=== PATIENT | male | born 1935 | race Caucasian/White ===

== ENCOUNTER 2016-06-09 16:57 | Emergency (ER) | payer MEDICARE, OTHER ==
[~2016-06-09] VITALS: Ht 165.1 cm; Wt 67.6 kg
[~2016-06-09 16:57] MED LIST: AMIO400T4 PO; AMOX-355 PO; ASCO500T75 PO; ASPI-84; ASPI-892 PO; CARV12.52 PO; CARV12.53 PO; CHOL100011 PO; CHOL400C9 PO; CLOP75TA PO; CLOP75TA28 PO; DOXY100T2 PO; FISH1CAP15 PO; FURO20TA4 PO; HYDR-3812 PO; HYDR-3816 PO; HYDR1TAB PO; LISI-556 PO; LOVA20TA2 PO; NA P133E35 PR; POLY119P PO; POLY17PO6 PO; POTA10CA43 PO; RT-ALBUINH IH; SMV20T; TAMS0.4C2 PO; TAMS0.4C9 PO; TMSL.4C; TRM50T PO
[2016-06-09 18:06] LABS: BILIRUBIN,URINE NEGATIVE (NEGATIVE); KETONES,URINE NEGATIVE (NEGATIVE); LEUKOCYTE ESTERASE ,URINE 3+ (NEGATIVE); NITRITE,URINE NEGATIVE (NEGATIVE); PH,URINE 5 (5-9); PROTEIN,URINE NEGATIVE (NEGATIVE); UROBILINOGEN,URINE NORMAL (NORMAL)
--- NOTE | 2016-06-09 18:14 | ED GU-Male ---
General Chief Complaint: -Male Stated Complaint: DIFF URINATING/FEELS "FULL" Nursing Triage Note: PT REPORS HE IS UNABLE TO URINATE. HE STATES HE HAS BEEN VOIDING SMALL AMOUNTS. HE ALSO REPORTS ABD BLOATING, BUT DENIES PAIN. HE REPORTS HE HAS HAD SIMILAR PROBLEMS AND HAD TO BE TREATED FOR UTI. Source: patient Exam Limitations: no limitations History of Present Illness Time seen by provider: 18:12 Initial Comments Patient complains of urinary urgency and hesitancy for the past several days. He is only voiding small amounts at a time. He denies fevers or chills. He has abdominal bloating. History of urinary tract infection. Allergies and Home Medications Allergies Coded Allergies: celecoxib (Verified Allergy, Mild, RASH, TAKES ASA AT HOME, 07/07/14) Home Medications Albuterol Sulfate 8.5 Gm Hfa.aer.ad #1 2-4 PUFF IH Q4H PRN PRN SHORTNESS OF BREATH Prescribed by: NATASHA MALDONADO on 03/31/15 1005 Amiodarone HCl 400 Mg Tablet 200 MG PO DAILY (Reported) TAKES 1/2 (400MG) TABLET Ascorbic Acid 500 Mg Tablet 500 MG PO DAILY (Reported) Carvedilol 12.5 Mg Tablet 12.5 MG PO BID (Reported) Cholecalciferol (Vitamin D3) 400 Unit Capsule 400 UNIT PO DAILY (Reported) Ciprofloxacin HCl 500 Mg Tablet #14 500 MG PO BID Prescribed by: HUGO HUBBARD on 06/09/16 1815 Doxycycline Hyclate 100 Mg Tablet #20 100 MG PO BID Prescribed by: NATASHA MALDONADO on 03/31/15 1004 Fish Oil/Dha/Epa 1 Each Capsule 1,200 MG PO BID (Reported) Furosemide 20 Mg Tablet 20 MG PO DAILY (Reported) Hydrocodone/Acetaminophen 1 Each Tablet 1 TAB PO HS (Reported) Lisinopril 5 Mg Tablet 5 MG PO DAILY (Reported) Lovastatin 20 Mg Tablet 20 MG PO HS (Reported) Polyethylene Glycol 3350 17 Gm Powd.pack 17 GM PO DAILY (Reported) Tamsulosin HCl 0.4 Mg Cap.er.24h 0.4 MG PO HS (Reported) Constitutional: no symptoms reported Cardiovascular: no symptoms reported Gastrointestinal: see HPINo abdominal pain Genitourinary: see HPI urgency Musculoskeletal: no symptoms reported Skin: no symptoms reported All Other Systemes Reviewed Negative Unless Noted: Yes Past Kwfftcy-Zdnwvs-Qoific Hx Patient Social History Alcohol Use: Denies Use Recreational Drug Use: No Smoking Status: Never a Smoker Former Smoker/When Quit: Mar 31, 1975 2nd Hand Smoke Exposure: No Recent Foreign Travel: No Contact w/Someone Who Travel: No Recent Infectious Disease Expo: No Recent Hopitalizations: No Immunizations Up To Date Date of Pneumonia Vaccine: Dec 31, 2010 Date of Influenza Vaccine: Mar 31, 2015 Surgeries HX Surgeries: Yes (CYST REMOVED FROM BACK) Surgeries: Abdominal, Appendectomy, Cardiac, CABG, Prostatectomy, Transurethral Resection Respiratory Hx Respiratory Disorders: No Cardiovascular Hx Cardiac Disorders: Yes (4 VESSEL CABG) Cardiac Disorders: Cardiomyopathy, Coronary Artery Disease, High Cholesterol Neurological Hx Neurological Disorders: No Genitourinary Hx Genitourinary Disorders: Yes Genitourinary Disorders: Benign Prostatic Hyperpl, Kidney Infection Gastrointestinal Hx Gastrointestinal Disorders: No Musculoskeletal Hx Musculoskeletal Disorders: No Endocrine Hx Endocrine Disorders: Yes Endocrine Disorders: Hyperthyroidism HEENT HX ENT Disorders: Yes (GLASSES) HEENT Disorders: Cataract Loss of Vision: Denies Hearing Impairment: Hard of Hearing Cancer Hx Cancer: No Psychosocial Hx Psychiatric Problems: No Integumentary HX Skin/Integumentary Disorder: No Blood Transfusions Hx Blood Disorders: No Adverse Reaction to a Blood Tr: No Family Medical History Significant Family History: Heart Disease Family Medial History: Cardiovascular disease 19 MOTHER, Onset:Unknown Physical Exam Vital Signs Vital Sign - Last 12Hours 06/09/16 17:08 Temp 97.2 Pulse 68 Resp 16 B/P 134/76 Pulse Ox 98 O2 Delivery Room Air Capillary Refill : Less Than 3 Seconds General Appearance: WD/WN no apparent distress Neck: supple Cardiovascular: regular rate, rhythm Respiratory: lungs clear Gastrointestinal: non tender soft Extremities: normal inspection Neurologic/Psychiatric: alert normal mood/affect Skin: normal color warm/dry Progress/Results/Core Measures Results/Orders Lab Results Laboratory Tests Test 06/09/16 17:56 Range/Units Urine Bacteria NEGATIVE /HPF Urine Bilirubin NEGATIVE NEGATIVE Urine Casts NONE /LPF Urine Clarity CLEAR Urine Color YELLOW Urine Crystals NONE /LPF Urine Culture Indicated YES Urine Glucose (UA) NEGATIVE NEGATIVE Urine Ketones NEGATIVE NEGATIVE Urine Leukocyte Esterase 3+ H NEGATIVE Urine Mucus NEGATIVE /LPF Urine Nitrite NEGATIVE NEGATIVE Urine Protein NEGATIVE NEGATIVE Urine RBC NONE /HPF Urine RBC (Auto) NEGATIVE NEGATIVE Urine Specific [place] 1.025 H 1.016-1.022 Urine Squamous Epithelial Cells 2-5 /HPF Urine Urobilinogen NORMAL NORMAL MG/DL Urine WBC 5-10 H /HPF Urine pH 5 5-9 My Orders Orders-HUGO HUBBARD MD Levofloxacin Tablet (Levaquin Tablet) (06/09/16 18:30) Vital Signs/I&O Vital Sign - Last 12Hours 06/09/16 17:08 Temp 97.2 Pulse 68 Resp 16 B/P 134/76 Pulse Ox 98 O2 Delivery Room Air Blood Pressure Mean: 95 Departure Impression Impression: Primary Impression: Urinary tract infection Disposition: 01 HOME, SELF-CARE Condition: Improved Departure-Patient Inst. Decision time for Depature: 18:14 Referrals: RUIZ MARTINI DO (PCP/Family) Primary Care Physician Patient Instructions: Urinary Tract Infections in Adults Scripts Ciprofloxacin HCl (Cipro)500 Mg [id number] Mg PO BID #14 TAB Prov:HUGO HUBBARD MD 06/09/16 HUGO HUBBARD MD Jun 09, 2016 18:14
[2016-06-09] MEDS ORDERED: CIPR-225 PO (18:15)
[2016-06-09 18:30] VITALS: BP 134/76
[2016-06-09] MEDS ORDERED: LEVOFLOXACIN 500 MG TAB (LEVAQUIN) PO ONE (18:30)
== END 2016-06-09 18:30 | disposition home or self-care (01) ==
LOC: EDUNIT# 16:57 → ER 16:59
DX: N39.0 Urinary tract infection, site not specified (principal); I25.10 Atherosclerotic heart disease of native coronary artery without angina pectoris; Z79.899 Other long term (current) drug therapy; Z95.1 Presence of aortocoronary bypass graft
CPT/HCPCS: 81000; 87088; 99283

== ENCOUNTER → 2017-08-12 | Outpatient (CLI) | payer MEDICARE, OTHER ==
[~2017-08-12] MED LIST changes: +ACHD5005 PO; -AMIO400T4 PO; +AMIO400T5 PO; +CIPR-225 PO; +HYDR-34 PO; -HYDR-3812 PO; -HYDR-3816 PO
--- NOTE | 2017-08-12 12:59 | Diagnostic Imaging Report ---
PROCEDURE: US abdomen complete. TECHNIQUE: Multiple real-time grayscale images were obtained over the abdomen in various projections. INDICATION: Abdominal pain. FINDINGS: There are no previous ultrasound examinations available for comparison. The CT abdomen/pelvis exam performed on 11/23/2014 noted generalized edema in the tissue planes of the abdomen, pelvis, and subcutaneous fat. The possibility that this was related to right heart failure was raised. On this exam, the liver is prominent and perhaps somewhat more echogenic than usually seen. This appearance does raise the question of fatty metamorphosis. There is no focal mass involving the liver and the biliary tree is abnormally dilated. There does appear to be a 4 mm polyp within the gallbladder. There is no evidence for cholelithiasis or acute cholecystitis, however. The common bile duct is not well visualized, however. The pancreas, the left kidney, the aorta and the inferior vena cava are also obscured by bowel gas. The spleen and right kidney are unremarkable. There is no mass or free fluid collection noted. IMPRESSION: 1. There is no acute abnormality of the abdomen identified, but the common bile duct, the pancreas, the left kidney, the aorta and the inferior vena cava are obscured by bowel gas. 2. If further study is desired, then CT of the abdomen and pelvis will be recommended. Dictated by: Dictated on workstation # [id number]
== END ==
LOC: RAD 08:23
PROVIDERS: ATTEND Internal Medicine
DX: R10.9 Unspecified abdominal pain (principal)
CPT/HCPCS: 76700

== ENCOUNTER → 2018-11-05 | Outpatient (CLI) | payer MEDICARE, OTHER ==
--- NOTE | 2018-11-05 18:04 | Diagnostic Imaging Report ---
INDICATION: Cough. TIME OF EXAM: 2:37 p.m. COMPARISON: Correlation is made with prior study from 03/31/2015. FINDINGS: There are changes of median sternotomy and CABG. The heart size is stable. The lungs are clear. No infiltrates are detected. The pulmonary vascularity is normal. No effusion or pneumothorax is seen. IMPRESSION: No acute cardiopulmonary process is detected. Dictated by: Dictated on workstation # [id number]
== END ==
LOC: RAD 14:16
PROVIDERS: ATTEND Internal Medicine
DX: R05 Cough (principal); Z95.1 Presence of aortocoronary bypass graft; Z98.890 Other specified postprocedural states
CPT/HCPCS: 71045

== ENCOUNTER 2019-02-16 13:24 | Emergency (ER) | payer MEDICARE, OTHER ==
[~2019-02-16] VITALS: Ht 167 cm; Wt 66.0 kg
--- NOTE | 2019-02-16 14:15 | NUR ---
TO ROOM REPORTS THAT HE HAS HAD THE PAIN INTERMITTEN FOR ONE MONTH
--- NOTE | 2019-02-16 14:27 | ED General ---
General Chief Complaint: Facial Problems Stated Complaint: LEFT SIDE FACIAL PAIN Nursing Triage Note: PT STATES RT SIDE FACE PAIN FOR ABOUT 90 MIN. NO TRAUMA, HAPPENED WHILE TRYING TO EAT. HX OF DEMENTIA, STATES NO WEAKNESS OR SLURRED SPEACH THAT SHE HAS NOTICED. PAIN COMES AND GOES, PT DID TAKE A TYLENOL 500 MG ABOUT 1200. Nursing Sepsis Screen: No Definite Risk Source of Information: Patient Exam Limitations: No Limitations History of Present Illness Date Seen by Provider: Feb 16, 2019 Time Seen by Provider: 14:21 Initial Comments To ER with right-sided facial pain. This is over the right cheekbone, lasts only a few seconds at a time occurring several times a day. It became worse today, however the states that he told her at home that is been going on i ntermittently for about a month. No vision troubles or changes, no ear pain. Timing/Duration: 1-2 Days, Intermittent Severity: Moderate Associated Systoms: Denies Symptoms Allergies and Home Medications Allergies Coded Allergies: celecoxib (Verified Allergy, Mild, RASH, TAKES ASA AT HOME, 07/07/14) Home Medications Albuterol Sulfate 8.5 Gm Hfa.aer.ad, 2-4 PUFF IH Q4H PRN for SHORTNESS OF BREATH Prescribed by: NATASHA MALDONADO on 03/31/15 1005 Amiodarone HCl 400 Mg Tablet, 200 MG PO DAILY, (Reported) TAKES 1/2 (400MG) TABLET Ascorbic Acid 500 Mg Tablet, 500 MG PO DAILY, (Reported) Carvedilol 12.5 Mg Tablet, 12.5 MG PO BID, (Reported) Cholecalciferol (Vitamin D3) 400 Unit Capsule, 400 UNIT PO DAILY, (Reported) Fish Oil/Dha/Epa 1 Each Capsule, 1,200 MG PO BID, (Reported) Furosemide 20 Mg Tablet, 20 MG PO DAILY, (Reported) Hydrocodone Bit/Acetaminophen 1 Each Tablet, 1 TAB PO HS, (Reported) Lisinopril 5 Mg Tablet, 5 MG PO DAILY, (Reported) Lovastatin 20 Mg Tablet, 20 MG PO HS, (Reported) Polyethylene Glycol 3350 17 Gm Powd.pack, 17 GM PO DAILY, (Reported) Tamsulosin HCl 0.4 Mg Cap.er.24h, 0.4 MG PO HS, (Reported) Patient Home Medication List Home Medication List Reviewed: Yes Review of Systems Review of Systems Constitutional: see HPI EENTM: see HPI Respiratory: no symptoms reported Cardiovascular: no symptoms reported Genitourinary: no symptoms reported Musculoskeletal: no symptoms reported Skin: no symptoms reported Psychiatric/Neurological: No Symptoms Reported Hematologic/Lymphatic: No Symptoms Reported Immunological/Allergic: no symptoms reported Past Cnshiln-Rafodc-Oqniws Hx Patient Social History Alcohol Use: Denies Use Recreational Drug Use: No Smoking Status: Former Smoker Type Used: Cigarettes Former Smoker, Quit: Jan 29, 1973 2nd Hand Smoke Exposure: No Recent Foreign Travel: No Contact w/Someone Who Travel: No Recent Infectious Disease Expo: No Recent Hopitalizations: No Immunizations Up To Date Date of Pneumonia Vaccine: Dec 31, 2010 Date of Influenza Vaccine: Mar 31, 2015 Seasonal Allergies Seasonal Allergies: No Past Medical History Surgeries: Yes (CYST REMOVED FROM BACK) Abdominal, Appendectomy, Cardiac, CABG, Prostatectomy, Transurethral Resection Respiratory: No Cardiac: Yes (4 VESSEL CABG) Cardiomyopathy, Coronary Artery Disease, High Cholesterol Neurological: No Genitourinary: Yes Benign Prostatic Hyperpl, Kidney Infection, Prostate Problems Gastrointestinal: No Musculoskeletal: No Endocrine: Yes Hyperthyroidism Cataract Loss of Vision: Denies Hearing Impairment: Hard of Hearing Cancer: No Psychosocial: No Integumentary: No Blood Disorders: No Adverse Reaction/Blood Tranf: No Family Medical History Cardiovascular disease 19 MOTHER, Onset:Unknown Heart Disease Physical Exam Vital Signs Vital Signs - First Documented 02/16/19 13:40 Temp 36.5 Pulse 75 Resp 20 B/P (MAP) 177/92 (120) Pulse Ox 99 O2 Delivery Room Air Capillary Refill : Less Than 3 Seconds Height, Weight, BMI Height: 5'5" Weight: 149lbs. 0.0oz. 67.642616mc; 23.00 BMI Method:Stated General Appearance: No Apparent Distress, WD/WN Eyes: Bilateral Eye Normal Inspection, Bilateral Eye PERRL, Bilateral Eye EOMI HEENT: PERRL/EOMI, TMs Normal, Normal ENT Inspection, Other (no vesicles no erythema no tenderness to palpation no swelling) Neck: Full Range of Motion, Normal Inspection Respiratory: Normal Breath Sounds, No Accessory Muscle Use, No Respiratory Distress Gastrointestinal: Normal Bowel Sounds, Non Tender, Soft Neurologic/Psychiatric: Alert, Oriented x3 Skin: Normal Color, Warm/Dry Progress/Results/Core Measures Suspected Sepsis Recent Fever Within 48 Hours: No Infection Criteria Present: None New/Unexplained Altered Menta: No Sepsis Screen: No Definite Risk SIRS Temperature: Pulse: 75 Respiratory Rate: 20 Blood Pressure 177 /92 Mean: 120 Results/Orders Vital Signs/I&O 02/16/19 13:40 Temp 36.5 Pulse 75 Resp 20 B/P (MAP) 177/92 (120) Pulse Ox 99 O2 Delivery Room Air Capillary Refill : Less Than 3 Seconds Blood Pressure Mean: 120 POS Departure Impression Primary Impression: Trigeminal neuralgia of right side of face Disposition: HOME, SELF-CARE Condition: Stable Departure-Patient Inst. Decision time for Depature: 14:24 Referrals: RUIZ MARTINI DO (PCP/Family) Primary Care Physician Patient Instructions: Trigeminal Neuralgia Add. Discharge Instructions: 1. Return to ER for any concerns 2. Follow-up with your doctor next week. The medicine I'm putting you on can cause some difficulty walking dizziness drowsiness or nausea. Hopefully you have not of the side effects, but if you do, call Dr. Martini's office. We will start you on a very low-dose to hopefully make the side effects unlikely 3. All discharge instructions reviewed with patient and/or family. Voiced understanding. Scripts Carbamazepine (Tegretol Xr) 100 Mg Tab 100 MG PO BID, #10 TAB Prov: NATALIA MEZA APRN 02/16/19 Images Head/Face 1 - Copy Copies To 1: RUIZ MARTINI PETER J APRN Feb 16, 2019 14:27 POS
[2019-02-16] MEDS ORDERED: NF-CARBAMX PO (14:43)
[2019-02-16 14:52] VITALS: BP 177/92
== END 2019-02-16 14:51 | disposition home or self-care (01) ==
LOC: EDUNIT# 13:24 → ER 13:25
DX: G50.0 Trigeminal neuralgia (principal); I25.10 Atherosclerotic heart disease of native coronary artery without angina pectoris; E78.00 Pure hypercholesterolemia, unspecified; E05.90 Thyrotoxicosis, unspecified without thyrotoxic crisis or storm; Z90.49 Acquired absence of other specified parts of digestive tract; Z95.1 Presence of aortocoronary bypass graft; Z88.6 Allergy status to analgesic agent; Z87.891 Personal history of nicotine dependence; Z82.49 Family history of ischemic heart disease and other diseases of the circulatory system
CPT/HCPCS: 99283

== ENCOUNTER 2020-02-19 21:38 | Emergency (ER) | payer MEDICARE, OTHER ==
[~2020-02-19] VITALS: Ht 170 cm; Wt 68.0 kg
[~2020-02-19 21:38] MED LIST changes: +NF-CARBAMX PO
--- NOTE | 2020-02-19 22:22 | ED GU-Male ---
General Chief Complaint: - Urinary Stated Complaint: DIFF URINATING Source: patient (SCAR TURCIOS,MED STUDENT) History of Present Illness Date Seen by Provider: Feb 19, 2020 Time Seen by Provider: 21:50 Initial Comments Patient is an 84yo male presenting via POV c/o urinary retention. He is unable to recall when he last voided, but notes he has been incontinent. He also reports intermittent pain with urinating, but denies blood or unusual odors. Denies fevers, chills, CP, SOB, nausea, vomiting, diarrhea. He has a history of BPH and is s/p TURP. On chart review he also has a hx of dementia, and at the time of exam he is oriented to setting, but not to location or date. (SCAR TURCIOS,MED STUDENT) Allergies and Home Medications Allergies Coded Allergies: celecoxib (Verified Allergy, Mild, RASH, TAKES ASA AT HOME, 07/07/14) Home Medications Albuterol Sulfate 8.5 Gm Hfa.aer.ad, 2-4 PUFF IH Q4H PRN for SHORTNESS OF BREATH Prescribed by: NATASHA MALDONADO on 03/31/15 1005 Amiodarone HCl 400 Mg Tablet, 200 MG PO DAILY, (Reported) TAKES 1/2 (400MG) TABLET Ascorbic Acid 500 Mg Tablet, 500 MG PO DAILY, (Reported) Carbamazepine 100 Mg Tab, 100 MG PO BID Prescribed by: NATALIA MEZA on 02/16/19 1443 Carvedilol 12.5 Mg Tablet, 12.5 MG PO BID, (Reported) Cephalexin 500 Mg Capsule, 500 MG PO TID Prescribed by: NATASAH MALDONADO on 02/19/20 2315 Cholecalciferol (Vitamin D3) 400 Unit Capsule, 400 UNIT PO DAILY, (Reported) Fish Oil/Dha/Epa 1 Each Capsule, 1,200 MG PO BID, (Reported) Furosemide 20 Mg Tablet, 20 MG PO DAILY, (Reported) Hydrocodone Bit/Acetaminophen 1 Each Tablet, 1 TAB PO HS, (Reported) Lisinopril 5 Mg Tablet, 5 MG PO DAILY, (Reported) Lovastatin 20 Mg Tablet, 20 MG PO HS, (Reported) Polyethylene Glycol 3350 17 Gm Powd.pack, 17 GM PO DAILY, (Reported) Tamsulosin HCl 0.4 Mg Cap.er.24h, 0.4 MG PO HS, (Reported) Patient Home Medication List Home Medication List Reviewed: Yes (NATASHA HUGHES MD) Review of Systems Review of Systems Constitutional: No chills, No dizziness, No fever EENTM: no symptoms reported Respiratory: No cough, No short of breath, No wheezing Cardiovascular: No chest pain, No palpitations, No syncope Gastrointestinal: No abdominal pain, No diarrhea, No nausea, No vomiting Genitourinary: see HPI; denies hematuria Musculoskeletal: no symptoms reported Skin: no symptoms reported Psychiatric/Neurological: Denies Headache, Denies Numbness, Denies Paresthesia, Denies Tingling, Denies Weakness (SCAR TURCIOS MED STUDENT) Past Fnormai-Uezhmj-Utlpld Hx Patient Social History Type Used: Cigarettes Former Smoker, Quit: Jan 29, 1973 2nd Hand Smoke Exposure: No Recent Foreign Travel: No Contact w/Someone Who Travel: No Recent Infectious Disease Expo: No Recent Hopitalizations: No (SCAR TURCIOS MED STUDENT) Immunizations Up To Date Date of Pneumonia Vaccine: Dec 31, 2010 Date of Influenza Vaccine: Mar 31, 2015 (SCAR TURCIOS MED STUDENT) Seasonal Allergies Seasonal Allergies: No (SCAR TURCIOS MED STUDENT) Past Medical History Surgeries: Yes (CYST REMOVED FROM BACK) Abdominal, Appendectomy, Cardiac, CABG, Prostatectomy, Transurethral Resection Respiratory: No Cardiac: Yes (4 VESSEL CABG) Cardiomyopathy, Coronary Artery Disease, High Cholesterol Neurological: No Genitourinary: Yes Benign Prostatic Hyperpl, Kidney Infection, Prostate Problems Gastrointestinal: No Musculoskeletal: No Endocrine: Yes Hyperthyroidism Cataract Loss of Vision: Denies Hearing Impairment: Hard of Hearing Cancer: No Psychosocial: No Integumentary: No Blood Disorders: No Adverse Reaction/Blood Tranf: No (SCAR TURCIOS MED STUDENT) Family Medical History Cardiovascular disease 19 MOTHER, Onset:Unknown Heart Disease (SCAR TURCIOS MED STUDENT) Physical Exam Vital Signs Vital Signs - First Documented 02/19/20 21:51 Temp 36.6 Pulse 92 Resp 20 B/P (MAP) 190/114 (139) Pulse Ox 99 O2 Delivery Room Air (NATASHA HUGHES MD) Vital Signs Capillary Refill : Less Than 3 Seconds (SCAR TURCIOS MED STUDENT) Height, Weight, BMI Height: 5'5" Weight: 149lbs. 0.0oz. 67.668715xw; 23.00 BMI Method:Stated General Appearance: WD/WN, no apparent distress HEENT: PERRL/EOMI, pharynx normal Neck: non-tender, normal inspection Cardiovascular: normal peripheral pulses, no murmur, tachycardia Respiratory: lungs clear, no respiratory distress, no accessory muscle use Gastrointestinal: normal bowel sounds, non tender, soft Extremities: non-tender, no calf tenderness, normal capillary refill Neurologic/Psychiatric: alert, normal mood/affect; No oriented x 3 (SCAR TURCIOSMED STUDENT) Progress/Results/Core Measures Suspected Sepsis Recent Fever Within 48 Hours: No Infection Criteria Present: None New/Unexplained Altered Menta: No Sepsis Screen: No Definite Risk SIRS Temperature: Pulse: 92 Respiratory Rate: 20 Blood Pressure 190 /114 Mean: 139 (SCAR TURCIOS MED STUDENT) Results/Orders Lab Results Laboratory Tests Test 02/19/20 22:26 Range/Units Urine Color YELLOW Urine Clarity CLEAR Urine pH 5.0 5-9 Urine Specific [place] <=1.005 1.016-1.022 Urine Protein NEGATIVE NEGATIVE Urine Glucose (UA) NEGATIVE NEGATIVE Urine Ketones NEGATIVE NEGATIVE Urine Nitrite NEGATIVE NEGATIVE Urine Bilirubin NEGATIVE NEGATIVE Urine Urobilinogen 0.2 < = 1.0 MG/DL Urine Leukocyte Esterase 3+ H NEGATIVE Urine RBC (Auto) 1+ H NEGATIVE Urine RBC 0-2 /HPF Urine WBC 50-100 H /HPF Urine Squamous Epithelial Cells RARE /HPF Urine Crystals NONE /LPF Urine Bacteria LARGE H /HPF Urine Casts NONE /LPF Urine Mucus NEGATIVE /LPF Urine Yeast FEW H /HPF Urine Culture Indicated YES (NATASHA HUGHES MD) My Orders Orders - NATASHA HUGHES MD Bladder Scan (02/19/20 22:12) Cadet Cath (02/19/20 22:12) Ua Culture If Indicated (02/19/20 22:12) Urine Culture (02/19/20 22:26) Cephalexin Capsule (Keflex Capsule) (02/19/20 23:15) (NATASHA HUGHES MD) Vital Signs/I&O 02/19/20 21:51 Temp 36.6 Pulse 92 Resp 20 B/P (MAP) 190/114 (139) Pulse Ox 99 O2 Delivery Room Air (NATASHA HUGHES MD) Vital Signs/I&O Capillary Refill : Less Than 3 Seconds (SCAR TURCIOS,MED STUDENT) Blood Pressure Mean: 139 Progress Note : Progress Note Patient was unable to void and had greater than 600 mL retained in the bladder on bladder scan. Cadet catheter was placed. Urinalysis was performed and urinary tract infection was identified. Treatment was started with Keflex. I suggested he keep the catheter in until he can be seen by Dr. Dover next week. We educated his on how to care for the catheter. Keflex was given prior to discharge. Patient is already taking Flomax. (NATASHA HUGHES MD) Departure Impression Primary Impression: Urinary retention Additional Impression: Urinary tract infection Qualified Codes: N39.0 - Urinary tract infection, site not specified Disposition: 01 HOME, SELF-CARE Condition: Improved Departure-Patient Inst. Decision time for Depature: 23:13 (NATASHA HUGHES MD) Referrals: RUIZ MARTINI DO (PCP/Family) Primary Care Physician Patient Instructions: Urinary Tract Infection, Adult (DC), Cadet Catheter, Male Add. Discharge Instructions: Complete your antibiotics as prescribed. Drink plenty of clear liquids. Keep the catheter bag lower than the level of the bladder is much as possible. Empty often. Follow-up with Dr. Dover first thing on Friday morning. He may be able to have the catheter removed in the office early in the week. If you are unable to follow-up with Dr. Dover, you may follow-up with your primary care provider or in the ER. Return to the emergency room or call if you have further problems or concerns. All discharge instructions reviewed with patient and/or family. Voiced understanding. Scripts Cephalexin (Keflex) 500 Mg Capsule 500 MG PO TID, #20 CAP Prov: NATASHA HUGHES MD 02/19/20 Medical Student Attestation and Attending Note: I have personally interviewed and examined this patient along with Scar Turcios, MS 4. I have reviewed student documentation including history, physical, and assessments. I agree with the documentation except where otherwise noted. Exam: General: Alert, oriented, no acute distress, well developed HEENT: Normocephalic and atraumatic Heart: Regular rate and rhythm without murmur Lungs: Clear to auscultation bilaterally with normal effort Abdomen: Soft, nontender, nondistended, normal bowel sounds Neuropsych: Confused at baseline due to dementia Skin: Warm and dry without rashes (NATASHA HUGHES MD) Copy Copies To 1: SILAS DOVER MD Copies To 2: RUIZ MARTINI JOSEPH,MED STUDENT Feb 19, 2020 22:22 NATASHA HUGHES MD Feb 19, 2020 23:15
[2020-02-19 22:41] LABS: BILIRUBIN,URINE NEGATIVE (NEGATIVE); CLARITY,URINE CLEAR; COLOR,URINE YELLOW; GLUCOSE, URINE (UA) NEGATIVE (NEGATIVE); KETONES,URINE NEGATIVE (NEGATIVE); LEUKOCYTE ESTERASE ,URINE 3+ (NEGATIVE); NITRITE,URINE NEGATIVE (NEGATIVE); PROTEIN,URINE NEGATIVE (NEGATIVE)
[2020-02-19 22:56] LABS: RBC,URINE 0-2 /HPF; WBC,URINE 50-100 /HPF
[2020-02-19 22:57] LABS: BACTERIA,URINE LARGE /HPF; SQUAMOUS EPITHELIAL CELL,UR RARE /HPF; YEAST,URINE FEW /HPF
[2020-02-19] MEDS ORDERED: CEPH-507 PO (23:15)
[2020-02-19] MEDS ORDERED: CEPHALEXIN 250 MG (KEFLEX) CAP PO ONE (23:15)
[2020-02-19 23:50] VITALS: BP 160/90
== END 2020-02-19 23:50 | disposition home or self-care (01) ==
LOC: EDUNIT# 21:38 → ER 21:39
DX: N39.0 Urinary tract infection, site not specified (principal); E78.00 Pure hypercholesterolemia, unspecified; E05.90 Thyrotoxicosis, unspecified without thyrotoxic crisis or storm; F03.90 Unspecified dementia, unspecified severity, without behavioral disturbance, psychotic disturbance, mood disturbance, and anxiety; Z87.438 Personal history of other diseases of male genital organs; Z87.891 Personal history of nicotine dependence; Z95.1 Presence of aortocoronary bypass graft; Z88.6 Allergy status to analgesic agent
CPT/HCPCS: 51702; 81000; 87077; 87088; 87186

== ENCOUNTER 2020-03-11 03:52 | Emergency (ER) | payer MEDICARE, OTHER ==
[~2020-03-11] VITALS: Ht 170 cm; Wt 68.0 kg
[~2020-03-11 03:52] MED LIST changes: +CEPH-507 PO
[2020-03-11 04:05] VITALS: BP 164/99
[2020-03-11] MEDS ORDERED: NITR-65 PO (04:22)
--- NOTE | 2020-03-11 04:22 | ED GU-Male ---
General Chief Complaint: - Urinary Stated Complaint: CAN'T URINATE Source: patient (VERY LIMITED HISTORIAN, PT WITH DEMENTIA), family (SPOKE WITH ON PHONE, AND ADDITIONAL INFORMATION OBTAINED FROM HER) History of Present Illness Date Seen by Provider: Mar 11, 2020 Time Seen by Provider: 04:07 Initial Comments PT ARRIVES VIA POV FROM HOME PT HAVING URINARY RETENTION STATES HE STARTED COMPLAINING THIS AFTERNOON OF A STOMACH ACHE IN LOWER ABDOMEN, AND DIFFICULTY URINATING--VOIDING SMALL AMOUNTS AT A TIME, OR UNABLE TO VOID AT ALL. STATES HE VOIDED A SMALL AMOUNT JUST PRIOR TO ARRIVAL PT HAS HISTORY OF SAME, AND WAS HERE 02/19/20 AND POLLARD PLACED, GIVEN RX FOR KEFLEX--CULTURE GREW OUT E. COLI, WHICH WAS PANSENSITIVE. PT FOLLOWED UP WITH DR. DOVER 03/02/20 AND CATHETER WAS DC'D AND PT WAS STARTED ON FINASTERIDE, IN ADDITION TO HIS NORMAL TAMSULOSIN. PT HAS A FOLLOW UP APPOINTMENT WITH DR. DOVER 03/15/20. NO FEVER NO NAUSEA/VOMITING HAS BEEN ACTING NORMAL OTHERWISE., EATING AND DRINKING NORMALLY PCP: DR. MARTINI UROLOGIST: DR. DOVER Allergies and Home Medications Allergies Coded Allergies: celecoxib (Verified Allergy, Mild, RASH, TAKES ASA AT HOME, 07/07/14) Home Medications Albuterol Sulfate 8.5 Gm Hfa.aer.ad, 2-4 PUFF IH Q4H PRN for SHORTNESS OF BREATH Prescribed by: NATASHA MALDONADO on 03/31/15 1005 Amiodarone HCl 400 Mg Tablet, 200 MG PO DAILY, (Reported) TAKES 1/2 (400MG) TABLET Ascorbic Acid 500 Mg Tablet, 500 MG PO DAILY, (Reported) Carbamazepine 100 Mg Tab, 100 MG PO BID Prescribed by: NATALIA MEZA on 02/16/19 1443 Carvedilol 12.5 Mg Tablet, 12.5 MG PO BID, (Reported) Cephalexin 500 Mg Capsule, 500 MG PO TID Prescribed by: NATASHA MALDONADO on 02/19/20 2315 Cholecalciferol (Vitamin D3) 400 Unit Capsule, 400 UNIT PO DAILY, (Reported) Fish Oil/Dha/Epa 1 Each Capsule, 1,200 MG PO BID, (Reported) Furosemide 20 Mg Tablet, 20 MG PO DAILY, (Reported) Hydrocodone Bit/Acetaminophen 1 Each Tablet, 1 TAB PO HS, (Reported) Lisinopril 5 Mg Tablet, 5 MG PO DAILY, (Reported) Lovastatin 20 Mg Tablet, 20 MG PO HS, (Reported) Nitrofurantoin Monohyd/M-Cryst 100 Mg Capsule, 1 TAB PO BID Prescribed by: ABA GUZMAN on 03/11/20 0422 Polyethylene Glycol 3350 17 Gm Powd.pack, 17 GM PO DAILY, (Reported) Tamsulosin HCl 0.4 Mg Cap.er.24h, 0.4 MG PO HS, (Reported) Patient Home Medication List Home Medication List Reviewed: Yes Review of Systems Review of Systems Constitutional: no symptoms reported Gastrointestinal: see HPI Genitourinary: see HPI Psychiatric/Neurological: See HPI (DEMENTIA) Past Vaurkwe-Lcvgjx-Bottzq Hx Past Med/Social Hx: Reviewed and Corrections made Patient Social History Alcohol Use: Denies Use Recreational Drug Use: No Smoking Status: Former Smoker Type Used: Cigarettes Former Smoker, Quit: Jan 29, 1973 2nd Hand Smoke Exposure: No Recent Hopitalizations: No (urinary retention) Immunizations Up To Date Tetanus Booster (TDap): Unknown Date of Pneumonia Vaccine: Dec 31, 2010 Date of Influenza Vaccine: Mar 31, 2015 Seasonal Allergies Seasonal Allergies: No Past Medical History Surgeries: Yes (SEBACEOUS CYST REMOVED FROM BACK; CARDIAC CATH 2014-NO INTERVENTION) Abdominal, Appendectomy, Cardiac, CABG, Prostatectomy, Transurethral Resection Respiratory: No Cardiac: Yes (4 VESSEL CABG; CATH 2014-MODERATE DISEASE, NO INTERVENTION) Cardiomyopathy, Coronary Artery Disease, High Cholesterol Neurological: Yes Dementia Genitourinary: Yes (TURP) Benign Prostatic Hyperpl, Kidney Infection, Prostate Problems, Bladder Infection Gastrointestinal: No Musculoskeletal: No Endocrine: Yes Hyperthyroidism Cataract Loss of Vision: Denies Hearing Impairment: Hard of Hearing Cancer: No Psychosocial: No Integumentary: No Blood Disorders: No Adverse Reaction/Blood Tranf: No Family Medical History Cardiovascular disease 19 MOTHER, Onset:Unknown Heart Disease Physical Exam Vital Signs Vital Signs - First Documented 03/11/20 04:05 Temp 36.6 Pulse 95 Resp 16 B/P (MAP) 164/99 (120) Pulse Ox 99 O2 Delivery Room Air Capillary Refill : Height, Weight, BMI Height: 5'5" Weight: 149lbs. 0.0oz. [id number]; 23.00 BMI Method:Stated General Appearance: WD/WN, no apparent distress Cardiovascular: regular rate, rhythm, no murmur Respiratory: normal breath sounds Gastrointestinal: soft, tenderness (MILD SUPRAPUBIC TENDERNESS, NO GROSS BLADDER DISTENTION. ), hernia (SMALL REDUCIBLE HERNIA TO RIGHT OF UMBILICUS. NON-TENDER) Back: no CVA tenderness Extremities: no pedal edema Neurologic/Psychiatric: no motor/sensory deficits, alert, normal mood/affect, other (ORIENTED TO PERSON, PLACE, SOMEWHAT ORIENTED TO TIME AND SITUATION, VERY POOR HISTORIAN/POOR MEMORY) Skin: normal color, warm/dry Progress/Results/Core Measures Suspected Sepsis SIRS Temperature: Pulse: Respiratory Rate: Blood Pressure / Mean: Results/Orders Lab Results Laboratory Tests Test 03/11/20 04:21 Range/Units Urine Color YELLOW Urine Clarity SL CLOUDY Urine pH 6.0 5-9 Urine Specific Viola 1.010 L 1.016-1.022 Urine Protein NEGATIVE NEGATIVE Urine Glucose (UA) NEGATIVE NEGATIVE Urine Ketones NEGATIVE NEGATIVE Urine Nitrite NEGATIVE NEGATIVE Urine Bilirubin NEGATIVE NEGATIVE Urine Urobilinogen 0.2 < = 1.0 MG/DL Urine Leukocyte Esterase TRACE H NEGATIVE Urine RBC (Auto) NEGATIVE NEGATIVE Urine RBC NONE /HPF Urine WBC 0-2 /HPF Urine Squamous Epithelial Cells 0-2 /HPF Urine Crystals NONE /LPF Urine Bacteria TRACE /HPF Urine Casts PRESENT /LPF Urine Hyaline Casts 0-2 H /LPF Urine Mucus SMALL H /LPF Urine Culture Indicated NO My Orders Orders - ABA GUZMAN DO Catheter(Urinary) Insert & Ass 03,15 (03/11/20 04:18) Ua Culture If Indicated (03/11/20 04:18) Vital Signs/I&O 03/11/20 04:05 Temp 36.6 Pulse 95 Resp 16 B/P (MAP) 164/99 (120) Pulse Ox 99 O2 Delivery Room Air Capillary Refill : Progress Note : Progress Note POLLARD CATHETER PLACED WITH RETURN OF CLEAR URINE. Departure Communication (Admissions) Family Conversation [id number]--SPOKE WITH PT'S AND ADDITIONAL INFORMATION ABOUT CURRENT PROBLEM OBTAINED, DISCUSSED PLAN OF CARE. Impression Primary Impression: Urinary retention Additional Impression: Urinary tract infection Disposition: HOME, SELF-CARE Condition: Improved Departure-Patient Inst. Referrals: RUIZ MARTINI DO (PCP/Family) Primary Care Physician SILAS DOVER MD Patient Instructions: How to Care for Your Pollard Catheter, Male, Urinary Retention (DC), Urinary Tract Infection, Adult (DC) Add. Discharge Instructions: ROUTINE POLLARD CARE CONTINUE YOUR REGULAR MEDICATIONS PRESCRIBED FOLLOW UP WITH DR. DOVER THIS WEEK SCHEDULED All discharge instructions reviewed with patient and/or family. Voiced understanding. Scripts Nitrofurantoin Monohyd/M-Cryst (Macrobid 100 mg Capsule) 100 Mg Capsule 1 TAB PO BID, #20 CAP Prov: ABA GUZMAN DO 03/11/20 ABA GUZMAN DO Mar 11, 2020 04:22
[2020-03-11 04:29] LABS: BILIRUBIN,URINE NEGATIVE (NEGATIVE); CLARITY,URINE SL CLOUDY; COLOR,URINE YELLOW; GLUCOSE, URINE (UA) NEGATIVE (NEGATIVE); KETONES,URINE NEGATIVE (NEGATIVE); LEUKOCYTE ESTERASE ,URINE TRACE (NEGATIVE); NITRITE,URINE NEGATIVE (NEGATIVE); PROTEIN,URINE NEGATIVE (NEGATIVE)
[2020-03-11 04:43] LABS: BACTERIA,URINE TRACE /HPF; HYALINE CASTS, URINE 0-2 /LPF; SQUAMOUS EPITHELIAL CELL,UR 0-2 /HPF; WBC,URINE 0-2 /HPF
== END 2020-03-11 04:33 | disposition home or self-care (01) ==
LOC: EDUNIT# 03:52 → ER 03:56
DX: R33.9 Retention of urine, unspecified (principal); N39.0 Urinary tract infection, site not specified; E78.00 Pure hypercholesterolemia, unspecified; Z82.49 Family history of ischemic heart disease and other diseases of the circulatory system; Z95.9 Presence of cardiac and vascular implant and graft, unspecified; Z95.1 Presence of aortocoronary bypass graft; Z87.891 Personal history of nicotine dependence; Z88.8 Allergy status to other drugs, medicaments and biological substances
CPT/HCPCS: 51702; 81000; 87088

== ENCOUNTER 2020-12-08 05:32 | Outpatient (CLI) | payer MEDICARE, OTHER ==
[~2020-12-08] VITALS: Ht 170.2 cm; Wt 59.0 kg
[~2020-12-08 05:32] MED LIST changes: -LISI-556 PO; +LISI-729 PO; +NITR-65 PO
[2020-12-08] MEDS ORDERED: TMSL.4C PO (13:49)
[2020-12-08] MEDS ORDERED: ASPI-999 PO (13:49)
[2020-12-08] MEDS ORDERED: DONE10TA41 PO (13:49)
[2020-12-08] MEDS ORDERED: FINA5TAB6 PO (13:49)
== END 2020-12-08 13:54 | disposition home or self-care (01) ==
LOC: PREOP 05:32
PROVIDERS: ATTEND Otolaryngology Otolaryngology/Facial Plastic Surgery
DX: Z01.818 Encounter for other preprocedural examination (principal)

== ENCOUNTER 2021-02-18 11:31 | Emergency (ER) | payer MEDICARE, OTHER ==
[~2021-02-18] VITALS: Ht 167.7 cm; Wt 56.7 kg
[~2021-02-18 11:31] MED LIST changes: +ASPI-999 PO; +DONE10TA41 PO; +FINA5TAB6 PO; +TMSL.4C PO
--- NOTE | 2021-02-18 11:51 | ED Upper Extremity ---
General Chief Complaint: Upper Extremity Stated Complaint: RIGHT HAND INJURY Nursing Triage Note: PT AMBULATE TO ROOM FT1 WITH C/O SKIN TEAR TO TOP OF RIGHT HAND. PT REPORTS HE WAS USING AN ATTIC LADDER AND INJURED HAND. Source: patient Exam Limitations: no limitations History of Present Illness Date Seen by Provider: Feb 18, 2021 Time Seen by Provider: 11:48 Initial Comments To ER by private vehicle with reports of a laceration of the dorsal aspect of the right hand that occurred from scraping it on a ladder just prior to arrival. Onset: just prior to arrival Severity: mild Pain/Injury Location: right hand Method of Injury: unknown Modifying Factors: Worse With Movement Allergies and Home Medications Allergies Coded Allergies: celecoxib (Verified Allergy, Mild, RASH, TAKES ASA AT HOME, 07/07/14) Patient Home Medication List Home Medication List Reviewed: Yes Aspirin (Aspirin) 81 Mg Tab.chew, 81 MG PO DAILY, (Reported) Entered as Reported by: DONNA CABELLO on 12/08/20 1349 Donepezil HCl (Donepezil HCl) 10 Mg Tablet, 10 MG PO HS, (Reported) Entered as Reported by: DONNA CABELLO on 12/08/20 1349 Finasteride (Finasteride) 5 Mg Tablet, 5 MG PO BID, (Reported) Entered as Reported by: DONNA CABELLO on 12/08/20 1349 Tamsulosin HCl (Flomax) 0.4 Mg Cap, 0.4 MG PO BID, (Reported) Entered as Reported by: DONNA CABELLO on 12/08/20 1349 Review of Systems Constitutional: see HPI EENTM: see HPI Respiratory: no symptoms reported Cardiovascular: no symptoms reported Genitourinary: no symptoms reported Musculoskeletal: no symptoms reported Skin: no symptoms reported Psychiatric/Neurological: No Symptoms Reported Past Dqnsavl-Etrbyv-Bublkg Hx Patient Social History Tobacco Use?: No Smoking Status: Former Smoker Smokeless Tobacco Frequency: Never a User Use of E-Cig and/or Vaping Familia: Never a User Substance use?: No Alcohol Use?: No Pt feels they are or have been: No Immunizations Up To Date Tetanus Booster (TDap): Unknown First/Initial COVID19 Vaccinat: 05/2020 Second COVID19 Vaccination Noah: 06/2020 COVID19 Vaccine [employer]: JANE Seasonal Allergies Seasonal Allergies: No Past Medical History Surgeries: Yes (SEBACEOUS CYST REMOVED FROM BACK; CARDIAC CATH 2014-NO INTERVENTION) Abdominal, Appendectomy, Cardiac, CABG, Prostatectomy, Transurethral Resection Respiratory: No Cardiac: Yes (4 VESSEL CABG; CATH 2014-MODERATE DISEASE, NO INTERVENTION) Cardiomyopathy, Coronary Artery Disease, High Cholesterol Neurological: Yes Dementia Genitourinary: Yes (TURP) Benign Prostatic Hyperpl, Kidney Infection, Prostate Problems, Bladder Infection Gastrointestinal: No Musculoskeletal: No Endocrine: Yes Hyperthyroidism HEENT: Yes (GLASSES) Cataract Loss of Vision: Denies Hearing Impairment: Hard of Hearing Cancer: Yes (CURRENT) Skin What Type of Treatment Did You: Surgical Intervention Psychosocial: Yes (DEMENTIA) Sleep Difficulties Integumentary: No Blood Disorders: No Adverse Reaction/Blood Tranf: No (N/A) Family Medical History Cardiovascular disease 19 MOTHER, Onset:Unknown Heart Disease Physical Exam Vital Signs Vital Signs - First Documented 02/18/21 11:42 Temp 36.1 Pulse 77 Resp 16 B/P (MAP) 132/86 (101) O2 Delivery Room Air Capillary Refill : Less Than 3 Seconds Height, Weight, BMI Height: 5'5" Weight: 149lbs. 0.0oz. 67.048963fi; 20.00 BMI Method:Stated General Appearance: WD/WN, no apparent distress HEENT: PERRL/EOMI, normal ENT inspection Respiratory: no respiratory distress, no accessory muscle use Gastrointestinal: normal bowel sounds, non tender Elbow/Forearm: normal inspection, non-tender Hand: Right, laceration (There is a 4 cm skin tear superficial to the dorsal aspect of the right hand with minimal oozing of blood. No swelling. Full flexion and extension ability. This was cleansed with chlorhexidine/saline solution then 3 Steri-Strips applied and then nonadherent gauze and then Coban.) Neurologic/Psychiatric: alert, normal mood/affect, oriented x 3 Skin: normal color, warm/dry Progress/Results/Core Measures Results/Orders My Orders Orders - NATALIA MEZA APRN, Pertuss(Acell),Tet Adult (Boostrix (02/18/21 12:00) Vital Signs/I&O 02/18/21 11:42 Temp 36.1 Pulse 77 Resp 16 B/P (MAP) 132/86 (101) O2 Delivery Room Air Blood Pressure Mean: 101 Departure Impression Primary Impression: Skin tear Disposition: HOME, SELF-CARE Condition: Stable Departure-Patient Inst. Decision time for Depature: 11:49 Referrals: RUIZ MARTINI DO (PCP/Family) Primary Care Physician Patient Instructions: Wound Care ED Add. Discharge Instructions: 1. Leave this dressing on clean and dry for about for 5 days. Return to ER for any concerns. You can change the brown wrap overlying the Steri-Strips as needed. Keep this dry by putting one of the large gloves on before showering and putting some tape around the wrist to keep it dry. All discharge instructions reviewed with patient and/or family. Voiced understanding. NATALIA MEZA TORCH STRAIGHTENER AND HEATER Feb 18, 2021 11:50
[2021-02-18 11:57] VITALS: BP 132/81
[2021-02-18] MEDS ORDERED: TETANUS,DIPTH,PERTUSS P/F (BOOSTRIX) 0.5 ML VIAL IM ONE (12:00)
== END 2021-02-18 11:57 | disposition home or self-care (01) ==
LOC: EDUNIT# 11:31 → ER 11:33
DX: S61.411A Laceration without foreign body of right hand, initial encounter (principal); F03.90 Unspecified dementia, unspecified severity, without behavioral disturbance, psychotic disturbance, mood disturbance, and anxiety; N40.0 Benign prostatic hyperplasia without lower urinary tract symptoms; Z23 Encounter for immunization; Z87.891 Personal history of nicotine dependence; Z79.82 Long term (current) use of aspirin; W22.8XXA Striking against or struck by other objects, initial encounter
CPT/HCPCS: 90715; 99284

== ENCOUNTER 2021-02-19 14:55 | Emergency (ER) | payer MEDICARE, OTHER ==
[~2021-02-19] VITALS: Ht 170 cm; Wt 59.0 kg
[2021-02-19 15:10] VITALS: BP 137/82
--- NOTE | 2021-02-19 15:25 | ED Upper Extremity ---
General Stated Complaint: RIGHT HAND WOUND Source: patient History of Present Illness Date Seen by Provider: Feb 19, 2021 Time Seen by Provider: 15:14 Initial Comments This is a well-appearing 85-year-old male who presented to the ER with concerns of excessive drainage on his dressing that is on the dorsal aspect of his right hand. He was seen in the emergency department yesterday and treated for a skin tear with Steri-Strips and dry dressing. States that he noticed that he had quite a bit of excessive dried blood on his dressing and would like to have it checked out. Allergies and Home Medications Allergies Coded Allergies: celecoxib (Verified Allergy, Mild, RASH, TAKES ASA AT HOME, 07/07/14) Patient Home Medication List Home Medication List Reviewed: Yes Aspirin (Aspirin) 81 Mg Tab.chew, 81 MG PO DAILY, (Reported) Entered as Reported by: DONNA CABELLO on 12/08/20 1349 Donepezil HCl (Donepezil HCl) 10 Mg Tablet, 10 MG PO HS, (Reported) Entered as Reported by: DONNA CABELLO on 12/08/20 1349 Finasteride (Finasteride) 5 Mg Tablet, 5 MG PO BID, (Reported) Entered as Reported by: DONNA CABELLO on 12/08/20 1349 Tamsulosin HCl (Flomax) 0.4 Mg Cap, 0.4 MG PO BID, (Reported) Entered as Reported by: DONNA CABELLO on 12/08/20 1349 Review of Systems Constitutional: no symptoms reported Musculoskeletal: no symptoms reported Skin: see HPI Past Rbitoxy-Buzogy-Oiigeh Hx Immunizations Up To Date Tetanus Booster (TDap): Unknown First/Initial COVID19 Vaccinat: 05/2020 Second COVID19 Vaccination Noah: 06/2020 Seasonal Allergies Seasonal Allergies: No Past Medical History Surgeries: Yes (SEBACEOUS CYST REMOVED FROM BACK; CARDIAC CATH 2014-NO INTERVENTION) Abdominal, Appendectomy, Cardiac, CABG, Prostatectomy, Transurethral Resection Respiratory: No Cardiac: Yes (4 VESSEL CABG; CATH 2014-MODERATE DISEASE, NO INTERVENTION) Cardiomyopathy, Coronary Artery Disease, High Cholesterol Neurological: Yes Dementia Genitourinary: Yes (TURP) Benign Prostatic Hyperpl, Kidney Infection, Prostate Problems, Bladder Infection Gastrointestinal: No Musculoskeletal: No Endocrine: Yes Hyperthyroidism HEENT: Yes (GLASSES) Cataract Loss of Vision: Denies Hearing Impairment: Hard of Hearing Cancer: Yes (CURRENT) Skin What Type of Treatment Did You: Surgical Intervention Psychosocial: Yes (DEMENTIA) Sleep Difficulties Integumentary: No Blood Disorders: No Adverse Reaction/Blood Tranf: No (N/A) Family Medical History Cardiovascular disease 19 MOTHER, Onset:Unknown Heart Disease Physical Exam Vital Signs Vital Signs - First Documented 02/19/21 15:10 Temp 36.8 Pulse 71 Resp 14 B/P (MAP) 137/82 (100) Pulse Ox 98 O2 Delivery Room Air Capillary Refill : Height, Weight, BMI Height: 5'5" Weight: 149lbs. 0.0oz. 67.686115gz; 20.00 BMI Method:Stated General Appearance: WD/WN, no apparent distress Hand: soft tissue tenderness (right dorsal skin tear, steri strips intact, no drainage, no redness. Bruising noted around skin tear. ) Neurologic/Psychiatric: no motor/sensory deficits, alert, normal mood/affect, oriented x 3 Skin: normal color, warm/dry Progress/Results/Core Measures Results/Orders Vital Signs/I&O 02/19/21 15:10 Temp 36.8 Pulse 71 Resp 14 B/P (MAP) 137/82 (100) Pulse Ox 98 O2 Delivery Room Air Progress Progress Note : Progress Note Patient examined and in no acute distress. Removed dry bloody dressing from his hand. His Steri-Strips are still intact, wound edges look great, no drainage no swelling no erythema. Applied ELIZABETH, clean dressing and Kerlix. Reviewed wound care and discharge plan. Patient and spouse are both agreeable with plan. Departure Impression Primary Impression: Skin tear Additional Impression: Skin wound closed with sterile strip Disposition: 01 HOME, SELF-CARE Condition: Improved Departure-Patient Inst. Decision time for Depature: 15:25 Referrals: RUIZ MARTINI DO (PCP/Family) Primary Care Physician Patient Instructions: Wound Care ED Add. Discharge Instructions: Plan: 1. You may wash or shower with Steri-Strips in place. 2. Cleanse the area with mild soap and water and gently pat dry with a clean towel or cloth. 3. Do not pull, tug, or rub Steri-Strips. 4. The Steri-Strips will fall off on their own within 2 weeks. After 2 weeks, gently remove any remaining Steri-Strips. 5. May cover with dry dressing. 6. Return for any new, concerning, or worsening symptoms. TITUS CONWAY EMPLOYMENT MANAGER Feb 19, 2021 15:25
== END 2021-02-19 15:35 | disposition home or self-care (01) ==
LOC: EDUNIT# 14:55 → ER 14:58
DX: Z48.01 Encounter for change or removal of surgical wound dressing (principal); F03.90 Unspecified dementia, unspecified severity, without behavioral disturbance, psychotic disturbance, mood disturbance, and anxiety; N40.0 Benign prostatic hyperplasia without lower urinary tract symptoms; Z79.82 Long term (current) use of aspirin; Z79.899 Other long term (current) drug therapy
CPT/HCPCS: 99281

== ENCOUNTER 2022-03-27 12:18 | Emergency (ER) | payer MEDICARE, OTHER ==
[~2022-03-27] VITALS: Ht 172.7 cm; Wt 63.5 kg
[~2022-03-27 12:18] MED LIST changes: +ALBU8.5H6 IH; -LISI-729 PO; +LISI5TAB20 PO; -RT-ALBUINH IH
[2022-03-27 12:48] LABS: BASOPHILS % (AUTO) 0 % (0-10); EOSINOPHILS % (AUTO) 0 % (0-10); LYMPHOCYTES % (AUTO) 12 % (12-44); MEAN CORPUSCULAR HEMOGLOBIN 32 pg (25-34); MEAN CORPUSCULAR HGB CONC 33 g/dL (32-36); MEAN CORPUSCULAR VOLUME 96 fL (80-99); MEAN PLATELET VOLUME 9.9 fL (9.0-12.2); MONOCYTES # (AUTO) 1.6 10^3/uL (0.0-1.0); MONOCYTES % (AUTO) 18 % (0-12); NEUTROPHILS # (AUTO) 6.1 10^3/uL (1.8-7.8); NEUTROPHILS % (AUTO) 70 % (42-75); PLATELET COUNT 199 10^3/uL (130-400); WHITE BLOOD COUNT 8.7 10^3/uL (4.3-11.0)
--- NOTE | 2022-03-27 12:49 | ED Neurological Problem ---
General Chief Complaint: Neuro-Stroke Like Symptoms Stated Complaint: POSSIBLE STROKE Nursing Triage Note: PT TO ED BY POV WITH AND DAUGHTER WITH C/O POSSIBLE STROKE. PT HAS DEMENTIA. REPORTS AROUND 1800 YESTERDAY, PT WAS LEANING TOWARDS THE RIGHT AND HAD IMPAIRED BALANCE. A FEW HOURS AFTER THIS EPISODE, PT WAS ABLE TO AMB TO RESTROOM. DAUGHTER NOTICED R SIDED FACIAL DROOP AROUND 0900 THIS MORNING. PT HOME HEALTH NURSE ENCOURAGED FAMILY TO BRING PT IN. Source: patient Exam Limitations: no limitations History of Present Illness Date Seen by Provider: Mar 27, 2022 Time Seen by Provider: 12:25 Initial Comments This is a 86 yo male with history of dementia and BPH who presented to the ER via POV with daughter and spouse. Last night around 1800 daughter went to assist him up from cough to table for dinner, he was leaning toward right and unable to support self. Required help from daughter and son to help him to restroom and then to bed. Daughter states he was able to get up in middle of the night by himself and use restroom. No falls or trauma recently. This morning when he woke around 0900 and he was noted to have worsening of his right sided facial droop. Was evaluated by [facility] and referred to ED for stroke-like symptoms. Allergies and Home Medications Allergies Coded Allergies: celecoxib (Verified Allergy, Mild, RASH, TAKES ASA AT HOME, 07/07/14) Patient Home Medication List Home Medication List Reviewed: Yes Aspirin (Aspirin) 81 Mg Tab.chew, 81 MG PO DAILY, (Reported) Entered as Reported by: DONNA CABELLO on 12/08/20 1349 Atorvastatin Calcium (Atorvastatin Calcium) 10 Mg Tablet, 10 MG PO HS Prescribed by: TITUS CONWAY on 03/27/22 1503 Cefuroxime Axetil (Cefuroxime) 250 Mg Tablet, 250 MG PO BID Prescribed by: TITUS CONWAY on 03/27/22 1541 Clopidogrel Bisulfate (Plavix) 75 Mg Tablet, 75 MG PO DAILY Prescribed by: TITUS CONWAY on 03/27/22 1503 Donepezil HCl (Donepezil HCl) 10 Mg Tablet, 10 MG PO HS, (Reported) Entered as Reported by: DONNA CABELLO on 12/08/20 1349 Finasteride (Finasteride) 5 Mg Tablet, 5 MG PO BID, (Reported) Entered as Reported by: DONNA CABELLO on 12/08/20 1349 Tamsulosin HCl (Flomax) 0.4 Mg Cap, 0.4 MG PO BID, (Reported) Entered as Reported by: DONNA CABELLO on 12/08/20 1349 Review of Systems Review of Systems Constitutional: see HPI Past Onyuciy-Zernfu-Hsqbft Hx Patient Social History Tobacco Use?: No Smoking Status: Former Smoker Substance use?: No Alcohol Use?: No Pt feels they are or have been: No Immunizations Up To Date Tetanus Booster (TDap): Unknown Influenza Vaccine Up-to-Date: No; Not Current First/Initial COVID19 Vaccinat: 05/2020 Second COVID19 Vaccination Noah: 06/2020 COVID19 Vaccine Burglar Alarm Mechanic: Plain Vanilla Seasonal Allergies Seasonal Allergies: No Past Medical History Surgery/Hospitalization HX: DEMENTIA, CARDIAC STENT Surgeries: Yes (SEBACEOUS CYST REMOVED FROM BACK; CARDIAC CATH 2014-NO INTERVENTION) Abdominal, Appendectomy, Cardiac, CABG, Prostatectomy, Transurethral Resection Respiratory: No Cardiac: Yes (4 VESSEL CABG; CATH 2014-MODERATE DISEASE, NO INTERVENTION) Cardiomyopathy, Coronary Artery Disease, High Cholesterol Neurological: Yes Dementia Genitourinary: Yes (TURP) Benign Prostatic Hyperpl, Kidney Infection, Prostate Problems, Bladder Infection Gastrointestinal: No Musculoskeletal: No Endocrine: Yes Hyperthyroidism HEENT: Yes (GLASSES) Cataract Loss of Vision: Denies Hearing Impairment: Hard of Hearing Cancer: Yes (CURRENT) Skin What Type of Treatment Did You: Surgical Intervention Psychosocial: Yes (DEMENTIA) Sleep Difficulties Integumentary: No Blood Disorders: No Adverse Reaction/Blood Tranf: No (N/A) Family Medical History Cardiovascular disease 19 MOTHER, Onset:Unknown Heart Disease Physical Exam Vital Signs Vital Signs - First Documented 03/27/22 12:25 Temp 36.4 Pulse 79 Resp 14 B/P (MAP) 145/82 (103) Pulse Ox 97 O2 Delivery Room Air Capillary Refill : Less Than 3 Seconds Height, Weight, BMI Height: 5'5" Weight: 149lbs. 0.0oz. 67.724575in; 21.00 BMI Method:Stated General Appearance: WD/WN, no apparent distress HEENT: pharynx normal; No scleral icterus (L); other (white discharge from left eye) Neck: full range of motion, normal inspection Respiratory: lungs clear, normal breath sounds, no respiratory distress, no accessory muscle use Cardiovascular: normal peripheral pulses, regular rate, rhythm, no edema, systolic murmur Gastrointestinal: normal bowel sounds, non tender, soft Extremities: normal range of motion, normal inspection Neurologic/Psychiatric: no motor/sensory deficits, alert, normal mood/affect, oriented x 3 Crainal Nerves: No abnormal pupil position; facial droop (right ) Motor/Sensory: No no motor deficit; other (BUE weakness, equal ) Skin: normal color, warm/dry Stroke Onset of Symptoms Date of Onset of Symptoms: Mar 26, 2022 Time of Symptom Onset: 18:00 Onset of Symptoms: Yes NIH Stroke Scale Assessment Level of Consciousness: 0=Alert (0), Level of Consciousness-Questions: 2=Answer neither question (2), LOC Commands: 0=Performs both tasks (0), Visual Hall: 0=No visual loss (0), Facial Movement (Facial Paresis): 2=Partial paralysis (2), Motor Function-Arms Right: 0=No drift (0), Motor Function-Arms Left: 0=No drift (0), Motor Function-Legs Right: 0=No drift (0), Motor Function-Legs Left: 0=No drift (0), Limb Ataxia: 0=Absent (0), Sensory: 0=Normal:no loss (0), Best Language: 0=No aphasia (0), Dysarthria: 1=Mild to moderate loss (1), Extinction & Inattention: 0=No abnormality (0), Total: 5 Progress/Results/Core Measures Results/Orders Lab Results Laboratory Tests Test 03/27/22 12:31 03/27/22 12:33 03/27/22 14:36 Range/Units Glucometer 90 70-110 MG/DL White Blood Count 8.7 4.3-11.0 10^3/uL Red Blood Count 4.11 L 4.30-5.52 10^6/uL Hemoglobin 13.0 L 13.3-17.7 g/dL Hematocrit 39 L 40-54 % Mean Corpuscular Volume 96 80-99 fL Mean Corpuscular Hemoglobin 32 25-34 pg Mean Corpuscular Hemoglobin Concent 33 32-36 g/dL Red Cell Distribution Width 12.5 10.0-14.5 % Platelet Count 199 130-400 10^3/uL Mean Platelet Volume 9.9 9.0-12.2 fL Immature Granulocyte % (Auto) 0 % Neutrophils (%) (Auto) 70 42-75 % Lymphocytes (%) (Auto) 12 12-44 % Monocytes (%) (Auto) 18 H 0-12 % Eosinophils (%) (Auto) 0 0-10 % Basophils (%) (Auto) 0 0-10 % Neutrophils # (Auto) 6.1 1.8-7.8 10^3/uL Lymphocytes # (Auto) 1.0 1.0-4.0 10^3/uL Monocytes # (Auto) 1.6 H 0.0-1.0 10^3/uL Eosinophils # (Auto) 0.0 0.0-0.3 10^3/uL Basophils # (Auto) 0.0 0.0-0.1 10^3/uL Immature Granulocyte # (Auto) 0.0 0.0-0.1 10^3/uL Neutrophils % (Manual) 68 % Lymphocytes % (Manual) 13 % Monocytes % (Manual) 16 % Eosinophils % (Manual) 1 % Basophils % (Manual) 1 % Band Neutrophils 1 % Blood Morphology Comment NORMAL Prothrombin Time 14.6 12.2-14.7 SEC INR Comment 1.1 0.8-1.4 Activated Partial Thromboplast Time 33 24-35 SEC D-Dimer 0.41 0.00-0.49 UG/ML Sodium Level 139 135-145 MMOL/L Potassium Level 3.5 L 3.6-5.0 MMOL/L Chloride Level 104 98-107 MMOL/L Carbon Dioxide Level 26 21-32 MMOL/L Anion Gap 9 5-14 MMOL/L Blood Urea Nitrogen 21 H 7-18 MG/DL Creatinine 0.92 0.60-1.30 MG/DL Estimat Glomerular Filtration Rate 82 BUN/Creatinine Ratio 23 Glucose Level 88 70-105 MG/DL Calcium Level 8.5 8.5-10.1 MG/DL Corrected Calcium 8.9 8.5-10.1 MG/DL Total Bilirubin 0.6 0.1-1.0 MG/DL Aspartate Amino Transf (AST/SGOT) 20 5-34 U/L Alanine Aminotransferase (ALT/SGPT) 17 0-55 U/L Alkaline Phosphatase 61 40-136 U/L Troponin I < 0.028 <0.028 NG/ML Total Protein 6.6 6.4-8.2 GM/DL Albumin 3.5 3.2-4.5 GM/DL Urine Color YELLOW Urine Clarity CLEAR Urine pH 6.0 5-9 Urine Specific Atlantic >=1.030 1.016-1.022 Urine Protein 1+ H NEGATIVE Urine Glucose (UA) NEGATIVE NEGATIVE Urine Ketones TRACE H NEGATIVE Urine Nitrite NEGATIVE NEGATIVE Urine Bilirubin NEGATIVE NEGATIVE Urine Urobilinogen 1.0 < = 1.0 MG/DL Urine Leukocyte Esterase 1+ H NEGATIVE Urine RBC (Auto) 3+ H NEGATIVE Urine RBC 25-50 H /HPF Urine WBC 10-25 H /HPF Urine Squamous Epithelial Cells 2-5 /HPF Urine Crystals PRESENT H /LPF Urine Amorphous Sediment FEW MASOOD URATES H /LPF Urine Bacteria MODERATE H /HPF Urine Casts NONE /LPF Urine Mucus MODERATE H /LPF Urine Culture Indicated YES My Orders Orders - TITUS CONWAY APRN Ct Angio Head/Neck (03/27/22 13:52) Iohexol Injection (Omnipaque 350 Mg/Ml 1 (03/27/22 14:00) Received Contrast (Hold Metformin- Contr (03/27/22 14:00) Ns (Ivpb) (Sodium Chloride 0.9% Ivpb Bag (03/27/22 14:00) Ceftriaxone 1 Gm Pre-Mix (Rocephin 1 Gm (03/27/22 15:45) Medications Given in ED Current Medications Medications Dose Ordered Sig/Nicholas Route Start Time Stop Time Status Last Admin Dose Admin Ceftriaxone Sodium/Dextrose 50 ml @ 100 mls/hr ONCE ONCE IV 03/27/22 15:45 03/27/22 16:11 DC 03/27/22 15:47 100 MLS/HR Iohexol 75 ml ONCE ONCE IV 03/27/22 14:00 03/27/22 14:01 DC 03/27/22 14:26 75 ML Sodium Chloride 100 ml ONCE ONCE IV 03/27/22 14:00 03/27/22 14:01 DC 03/27/22 14:27 100 ML Vital Signs/I&O 03/27/22 03/27/22 12:25 16:11 Temp 36.4 Pulse 79 80 Resp 14 16 B/P (MAP) 145/82 (103) 179/102 Pulse Ox 97 97 O2 Delivery Room Air Blood Pressure Mean: 103 FSBG Bedside Testing Finger Stick Blood Glucose: 90 Progress Progress Note : Progress Note Patient examined no acute distress. On arrival motion deficits noted are baseline, family just reports more pronounced today. Has pre-existing right- sided facial droop. Initiated stroke work-up. His bedside blood glucose was 90. Initial NIH 5. CT head without negative for acute stroke, EKG sinus rhythm no ischemic changes. Labs are unremarkable. Orders placed for CT angio head and neck. Bedside dysphagia screen performed by nursing staff. Has history of pocketing food and taking a well before he swallows. Family states that this has been ongoing for several months. They feel that his dementia may be progressing. Consulted with Dr. Martini who is patient's primary care provider, symptoms appear consistent with potential TIA. Would like to start Plavix 75 mg p.o. daily and add atorvastatin 10 mg p.o. daily. He is to continue his home aspirin daily. Family to call office for follow-up appointment. CT angio head and neck negative for acute findings. All results discussed with family. They are comfortable with discharging home and close follow-up with Dr. Martini. Was able to obtain urine sample prior to discharge and he was noted to have a urinary tract infection. We will go ahead and treat today. Given dose of Rocephin 1 g IV in the ER, will discharge home with rx. Initial ECG Impression Date: Mar 27, 2022 Initial ECG Impression Time: 12:32 Initial ECG Rate: 80 Initial ECG Rhythm: Normal Sinus Initial ECG Intervals: Normal Initial ECG Impression: Normal Diagnostic Imaging Comments [facility] [place], [place] NAME: CJ GILMORE [facility] REC#: [id number] PT STATUS: REG ER : 1935 PHYSICIAN: MAR NEWMAN MD ADMIT DATE: 03/27/22/ER Signed Date of Exam:03/27/22 CHEST 1 VIEW, AP/PA ONLY INDICATION: Cerebrovascular accident. Portable AP view of the chest is obtained. Comparison is made study of 11/05/2018. FINDINGS: There is suboptimal inspiration. Surgical findings are noted in the mediastinum with tortuosity of the thoracic aorta. There is no evidence of pneumothorax, consolidation or pleural fluid. IMPRESSION: Suboptimal inspiration limits evaluation, however no definite acute abnormality seen. Dictated by: Dictated on workstation # [id number] Dict: 03/27/22 1301 Trans: 03/27/22 1523 [id number] Interpreted by: CARRIE FENG MD Electronically signed by: CARRIE FENG MD 03/27/22 1523 Comments [facility] [place], [place] NAME: CJ GILMORE [facility] REC#: [id number] PT STATUS: REG ER : 1935 PHYSICIAN: MAR NEWMAN MD ADMIT DATE: 03/27/22/ER Signed Date of Exam:03/27/22 CT HEAD WO-R/O STROKE PROCEDURE: CT head without r/o stroke. TECHNIQUE: Multiple contiguous axial images were obtained through the brain without the use of intravenous contrast. Auto Exposure Controls were utilized during the CT exam to meet ALARA standards for radiation dose reduction. INDICATION: Stroke. Neurologic deficit. COMPARISON: CT head without contrast 07/07/2014. FINDINGS: Moderate to advanced generalized parenchymal volume loss and leukoaraiosis. No CT evidence of territorial infarction. No intracranial hemorrhage, mass effect, hydrocephalus, or extra-axial fluid collections. Osseous structures are intact. Mucosal thickening in the ethmoid sinuses. The mastoids are clear. IMPRESSION: No acute intracranial CT findings. Findings reported to Dr. Newman' nurse at 1:21 PM on 03/27/2022. Dictated by: Dictated on workstation # [id number] Dict: 03/27/22 1317 Trans: 03/27/22 1543 [id number] Interpreted by: NASIR PAULINO MD Electronically signed by: NASIR PAULINO MD 03/27/22 1543 Comments [facility]. [place], [place] NAME: CJ GILMORE [facility] REC#: [id number] PT STATUS: REG ER : 1935 PHYSICIAN: TITUS CONWAY APRN ADMIT DATE: 03/27/22/ER Signed Date of Exam:03/27/22 CT ANGIO HEAD/NECK PROCEDURE: CT angiography of the head and CT angiography of the neck with and without contrast. TECHNIQUE: Contiguous noncontrast images were obtained from the skull base through the vertex. After intravenous contrast administration, helical CT angiography of the neck was performed. Source data was reformatted into 3D MIP projections. Delayed postcontrast acquisition was also obtained. Auto Exposure Controls were utilized during the CT exam to meet ALARA standards for radiation dose reduction. INDICATION: Stroke. Right-sided deficit. COMPARISON: CT head without contrast 03/27/2022. FINDINGS: Delayed postcontrast head CT continues to demonstrate no evidence of a territorial infarction. No large intracranial hemorrhage or extra-axial fluid collection. No hydrocephalus. No mass effect. No abnormal intracranial enhancement. CTA demonstrates conventional aortic arch. Mild atherosclerotic calcifications in the carotid bifurcations. Mild irregular narrowing of the left posterior cerebral artery. No high-grade narrowing, aneurysm, or dissection involving the basilar, bilateral vertebral, common carotid, internal carotid, anterior cerebral, middle cerebral, or posterior cerebral arteries. The dural venous sinuses are normally opacified. Vyvzpymo-br-[id number] spondylotic changes in the cervical spine. Mucosal thickening in the ethmoid and maxillary sinuses. The mastoids are clear. The lung apices are clear. Nonspecific hypoenhancing nodules in the thyroid, the largest measuring up to 2.2 cm on the left. IMPRESSION: 1. No large vessel occlusion. No high-grade narrowing, aneurysm, or dissection involving the major arteries in the head and neck. 2. Indeterminate thyroid nodules, the largest measuring up to 2.2 cm on the left. Recommend nonemergent follow-up with dedicated ultrasound. Dictated by: Dictated on workstation # [id number] Dict: 03/27/22 1435 Trans: 03/27/22 1544 [id number] Interpreted by: NASIR PAULINO MD Electronically signed by: NASIR PAULINO MD 03/27/22 1544 Departure Impression Primary Impression: Right-sided muscle weakness Disposition: 01 HOME, SELF-CARE Condition: Stable Departure-Patient Inst. Decision time for Depature: 15:01 Referrals: RUIZ MARTINI DO (PCP/Family) Primary Care Physician Patient Instructions: Transient Ischemic Attack (DC), Urinary Tract Infection, Adult (DC) Add. Discharge Instructions: Plan: 1. Follow up with Dr. Martini, call office to schedule follow up. 2. Continue your Aspirin 81mg PO daily and start Plavix and Atorvastatin daily. 3. Return to ER for any worsening, new, or concerning symptoms. All discharge instructions reviewed with patient and/or family. Voiced understa nding. Scripts Cefuroxime Axetil (Cefuroxime) 250 Mg Tablet 250 MG PO BID for 14 Days, #20 TAB 0 Refills Prov: TITUS CONWAY CAR STARTER 03/27/22 Atorvastatin Calcium (Atorvastatin Calcium) 10 Mg Tablet 10 MG PO HS for 30 Days, #30 TAB 0 Refills Prov: TITUS CONWAY CAR STARTER 03/27/22 Clopidogrel Bisulfate (Plavix) 75 Mg Tablet 75 MG PO DAILY for 30 Days, #30 TAB 0 Refills Prov: TITUS CONWAY CAR STARTER 03/27/22 TITUS CONWAY CAR STARTER Mar 27, 2022 12:49
[2022-03-27 12:50] LABS: HEMATOCRIT 39 % (40-54)
[2022-03-27 12:54] LABS: ALBUMIN 3.5 GM/DL (3.2-4.5); CHLORIDE 104 MMOL/L (98-107); POTASSIUM 3.5 MMOL/L (3.6-5.0); SODIUM 139 MMOL/L (135-145)
[2022-03-27 12:55] LABS: CALCIUM 8.5 MG/DL (8.5-10.1)
[2022-03-27 12:56] LABS: FIBRIN DEGRADATION PRODUCTS 0.41 UG/ML (0.00-0.49); GLUCOSE 88 MG/DL (70-105); INR 1.1 (0.8-1.4); PROTHROMBIN TIME PATIENT 14.6 SEC (12.2-14.7); TOTAL PROTEIN 6.6 GM/DL (6.4-8.2)
[2022-03-27 12:57] LABS: CARBON DIOXIDE 26 MMOL/L (21-32)
[2022-03-27 12:58] LABS: BILIRUBIN,TOTAL 0.6 MG/DL (0.1-1.0)
[2022-03-27 12:59] LABS: ALKALINE PHOSPHATASE 61 U/L (40-136)
[2022-03-27 13:00] LABS: CREATININE SERUM 0.92 MG/DL (0.60-1.30); GFR ESTIMATED 82
[2022-03-27 13:01] LABS: BUN/CREATININE RATIO 23
[2022-03-27 13:03] LABS: ALANINE AMINOTRANSFERASE 17 U/L (0-55)
[2022-03-27 13:04] LABS: BAND NEUTROPHILS 1 %; BASOPHILS % (MANUAL) 1 %; EOSINOPHILS % (MANUAL) 1 %; LYMPHOCYTES % (MANUAL) 13 %; MONOCYTES % (MANUAL) 16 %; NEUTROPHILS % (MANUAL) 68 %; RBC MORPH NORMAL
--- NOTE | 2022-03-27 13:07 | Diagnostic Imaging Report ---
INDICATION: Cerebrovascular accident. Portable AP view of the chest is obtained. Comparison is made study of 11/05/2018. FINDINGS: There is suboptimal inspiration. Surgical findings are noted in the mediastinum with tortuosity of the thoracic aorta. There is no evidence of pneumothorax, consolidation or pleural fluid. IMPRESSION: Suboptimal inspiration limits evaluation, however no definite acute abnormality seen. Dictated by: Dictated on workstation # [id number]
--- NOTE | 2022-03-27 13:29 | Diagnostic Imaging Report ---
PROCEDURE: CT head without r/o stroke. TECHNIQUE: Multiple contiguous axial images were obtained through the brain without the use of intravenous contrast. Auto Exposure Controls were utilized during the CT exam to meet ALARA standards for radiation dose reduction. INDICATION: Stroke. Neurologic deficit. COMPARISON: CT head without contrast 07/07/2014. FINDINGS: Moderate to advanced generalized parenchymal volume loss and leukoaraiosis. No CT evidence of territorial infarction. No intracranial hemorrhage, mass effect, hydrocephalus, or extra-axial fluid collections. Osseous structures are intact. Mucosal thickening in the ethmoid sinuses. The mastoids are clear. IMPRESSION: No acute intracranial CT findings. Findings reported to Dr. Leone' nurse at 1:21 PM on 03/27/2022. Dictated by: Dictated on workstation # [id number]
[2022-03-27] MEDS ORDERED: HOLD METFORMIN - RECEIVED CONTRAST 20 ML VIAL IV SCH (14:00)
[2022-03-27] MEDS ORDERED: IOHEXOL 350 MG/ML 100 ML (OMNIPAQUE 350) VIAL IV ONE (14:00)
[2022-03-27] MEDS ORDERED: NS 100 ML (IVPB) BAG IV ONE (14:00)
[2022-03-27 14:44] LABS: BILIRUBIN,URINE NEGATIVE (NEGATIVE); CLARITY,URINE CLEAR; COLOR,URINE YELLOW; GLUCOSE, URINE (UA) NEGATIVE (NEGATIVE); KETONES,URINE TRACE (NEGATIVE); LEUKOCYTE ESTERASE ,URINE 1+ (NEGATIVE); NITRITE,URINE NEGATIVE (NEGATIVE); PROTEIN,URINE 1+ (NEGATIVE)
--- NOTE | 2022-03-27 14:46 | Diagnostic Imaging Report ---
PROCEDURE: CT angiography of the head and CT angiography of the neck with and without contrast. TECHNIQUE: Contiguous noncontrast images were obtained from the skull base through the vertex. After intravenous contrast administration, helical CT angiography of the neck was performed. Source data was reformatted into 3D MIP projections. Delayed postcontrast acquisition was also obtained. Auto Exposure Controls were utilized during the CT exam to meet ALARA standards for radiation dose reduction. INDICATION: Stroke. Right-sided deficit. COMPARISON: CT head without contrast 03/27/2022. FINDINGS: Delayed postcontrast head CT continues to demonstrate no evidence of a territorial infarction. No large intracranial hemorrhage or extra-axial fluid collection. No hydrocephalus. No mass effect. No abnormal intracranial enhancement. CTA demonstrates conventional aortic arch. Mild atherosclerotic calcifications in the carotid bifurcations. Mild irregular narrowing of the left posterior cerebral artery. No high-grade narrowing, aneurysm, or dissection involving the basilar, bilateral vertebral, common carotid, internal carotid, anterior cerebral, middle cerebral, or posterior cerebral arteries. The dural venous sinuses are normally opacified. Mwohijgy-mc-xyhhra spondylotic changes in the cervical spine. Mucosal thickening in the ethmoid and maxillary sinuses. The mastoids are clear. The lung apices are clear. Nonspecific hypoenhancing nodules in the thyroid, the largest measuring up to 2.2 cm on the left. IMPRESSION: 1. No large vessel occlusion. No high-grade narrowing, aneurysm, or dissection involving the major arteries in the head and neck. 2. Indeterminate thyroid nodules, the largest measuring up to 2.2 cm on the left. Recommend nonemergent follow-up with dedicated ultrasound. Dictated by: Dictated on workstation # [id number]
[2022-03-27] MEDS ORDERED: ATOR10TA66 PO (15:03)
[2022-03-27] MEDS ORDERED: CLOP-31 PO (15:03)
[2022-03-27 15:06] LABS: AMORPHOUS SEDIMENT,UR FEW AMOR URATES /LPF; BACTERIA,URINE MODERATE /HPF; RBC,URINE 25-50 /HPF
[2022-03-27] MEDS ORDERED: CEFU250T80 PO (15:41)
[2022-03-27] MEDS ORDERED: cefTRIAXone 1 GM PRE-MIX 50 ML IV ONE (15:45)
[2022-03-27 16:11] VITALS: BP 179/102
== END 2022-03-27 16:11 | disposition home or self-care (01) ==
LOC: EDUNIT# 12:18 → ER 12:20
DX: M62.81 Muscle weakness (generalized) (principal); N39.0 Urinary tract infection, site not specified; Z87.891 Personal history of nicotine dependence; Z28.311 Partially vaccinated for COVID-19
CPT/HCPCS: 36415; 70450; 70496; 70498; 71045; 80053; 81000; 82947; 84484; 85007; 85025; 85027; 85379; 85610; 85730; 87077; 87088; 87186; 93005; 93041